=== PATIENT | male | born 1985 | race Caucasian/White ===

== ENCOUNTER → 2023-03-08 | Outpatient (CLI) | payer MEDICARE, OTHER ==
[~2023-03-08] MED LIST: ACET500 PO; ASPI500 PO; CEPH500 PO; CODACE30 PO; CYCL10 PO; FAMO20 PO; HYDACE5 PO; HYDMOR2 PO; IBUP800 PO; MOXI400; ONDA8 PO; OTC ALLERGY MED PRN; OXYACE5T PO; PROM25 PO; RXCYCL10 PO; RXHYDMOR2 PO; SERT100 PO
[2023-03-08 18:31] LABS: Adenovirus F 40/41 Not Detected (NOT DETECT); Astrovirus Not Detected (NOT DETECT); Campylobacter Sp Not Detected (NOT DETECT); Cryptosporidium Not Detected (NOT DETECT); Cyclospora Cayetanensis Not Detected (NOT DETECT); E. Coli O157 Not Detected (NOT DETECT); Entamoeba Histolytica Not Detected (NOT DETECT); Enteroaggregative E. coli-EAEC Not Detected (NOT DETECT); Enteropathogenic E. coli-EPEC Not Detected (NOT DETECT); Enterotoxigenic E. coli-ETEC Not Detected (NOT DETECT); Giardia Lamblia Not Detected (NOT DETECT); Norovirus GI/GII Not Detected (NOT DETECT); Plesiomonas Shigelloides Not Detected (NOT DETECT); Rotavirus A Not Detected (NOT DETECT); Salmonella Sp Not Detected (NOT DETECT); Sapovirus Not Detected (NOT DETECT); Shiga Toxin-prod E. coli-STEC Not Detected (NOT DETECT); Shigella/Enteroin E. coli-EIEC Not Detected (NOT DETECT); Vibrio Cholerae Not Detected (NOT DETECT); Vibrio Sp Not Detected (NOT DETECT); Yersinia Enterocolitica Not Detected (NOT DETECT)
== END | disposition home or self-care (01) ==
LOC: LAB SHORT 12:30 → LAB 12:30
PROVIDERS: Internal Medicine Gastroenterology
DX: K50.90 Crohn's disease, unspecified, without complications (principal)
CPT/HCPCS: 87507

== ENCOUNTER 2023-03-21 06:49 | Day surgery (SDC) | payer MEDICARE ==
[~2023-03-21] VITALS: Ht 182.9 cm; Wt 74.7 kg
[~2023-03-21 06:49] MED LIST changes: +AMBIEN10 MG PO; +BUPR150ER PO; +Budeprion Xl300 MG PO; +LAMO100 PO; +PRAZ2 PO
[2023-03-21 09:15] VITALS: BP 124/78
== END 2023-03-21 09:40 | disposition home or self-care (01) ==
LOC: ORSCSDS 06:49
PROVIDERS: Internal Medicine Gastroenterology
PROC: 0DBA8ZX Excision of Jejunum, Via Natural or Artificial Opening Endoscopic, Diagnostic (ICD-10-PCS; principal; 2023-03-21 08:00)
PROC: 0DBB8ZX Excision of Ileum, Via Natural or Artificial Opening Endoscopic, Diagnostic (ICD-10-PCS; principal; 2023-03-21 08:00)
PROC: 0DB78ZX Excision of Stomach, Pylorus, Via Natural or Artificial Opening Endoscopic, Diagnostic (ICD-10-PCS; principal; 2023-03-21 08:00)
PROC: 0DB98ZX Excision of Duodenum, Via Natural or Artificial Opening Endoscopic, Diagnostic (ICD-10-PCS; principal; 2023-03-21 08:00)
PROC: 0DBE8ZX Excision of Large Intestine, Via Natural or Artificial Opening Endoscopic, Diagnostic (ICD-10-PCS; principal; 2023-03-21 08:00)
DX: K50.90 Crohn's disease, unspecified, without complications (principal); R19.7 Diarrhea, unspecified; R11.0 Nausea; D12.0 Benign neoplasm of cecum; R10.9 Unspecified abdominal pain; K64.8 Other hemorrhoids
CPT/HCPCS: 88305; 88342; J2250; J2704; J7120

== ENCOUNTER 2023-10-23 04:08 | Day surgery (SDC) | payer MEDICARE ==
[2023-10-23 15:38] VITALS: BP 147/78
[2023-10-23] MEDS ORDERED: INFLECTRA100 MG IV (15:43)
[2023-10-23 16:45] VITALS: BP 113/81
== END 2023-10-23 17:52 | disposition home or self-care (01) ==
LOC: ATC 04:08
DX: K50.00 Crohn's disease of small intestine without complications (principal); K21.9 Gastro-esophageal reflux disease without esophagitis; F31.9 Bipolar disorder, unspecified; E55.9 Vitamin D deficiency, unspecified; R63.0 Anorexia; Z79.899 Other long term (current) drug therapy
CPT/HCPCS: 96375; 96413; 96415; A9270; J1720; J7050; Q5103

== ENCOUNTER 2023-11-07 04:43 | Day surgery (SDC) | payer MEDICARE ==
[~2023-11-07 04:43] MED LIST changes: +INFLECTRA100 MG IV
[2023-11-07 14:55] VITALS: BP 124/77
--- NOTE | 2023-11-07 15:00 | NUR ---
PT DECLINES PRE MEDS.
[2023-11-07 15:41] VITALS: BP 114/77
[2023-11-07 15:55] VITALS: BP 122/77
[2023-11-07 16:10] VITALS: BP 113/74
[2023-11-07 16:25] VITALS: BP 121/79
[2023-11-07 16:55] VITALS: BP 112/74
== END 2023-11-07 17:27 | disposition home or self-care (01) ==
LOC: ATC 04:43
DX: K50.00 Crohn's disease of small intestine without complications (principal); N20.0 Calculus of kidney; F31.9 Bipolar disorder, unspecified
CPT/HCPCS: 96413; 96415; J7050; Q5103

== ENCOUNTER 2023-12-05 02:41 | Day surgery (SDC) | payer OTHER ==
[2023-12-05 15:23] VITALS: BP 131/95
== END 2023-12-05 17:45 | disposition home or self-care (01) ==
LOC: ATC 02:41
DX: K50.00 Crohn's disease of small intestine without complications (principal); K21.9 Gastro-esophageal reflux disease without esophagitis; Z88.5 Allergy status to narcotic agent; Z88.8 Allergy status to other drugs, medicaments and biological substances; Z79.899 Other long term (current) drug therapy
CPT/HCPCS: 96413; 96415; J7050; Q5103

== ENCOUNTER → 2024-05-01 | Outpatient (CLI) | payer OTHER ==
[2024-05-02 13:52] LABS: Adenovirus F 40/41 Not Detected (NOT DETECT); Astrovirus Not Detected (NOT DETECT); Campylobacter Sp Not Detected (NOT DETECT); Cryptosporidium Not Detected (NOT DETECT); Cyclospora Cayetanensis Not Detected (NOT DETECT); E. Coli O157 Not Detected (NOT DETECT); Entamoeba Histolytica Not Detected (NOT DETECT); Enteroaggregative E. coli-EAEC Not Detected (NOT DETECT); Enteropathogenic E. coli-EPEC Not Detected (NOT DETECT); Enterotoxigenic E. coli-ETEC Not Detected (NOT DETECT); Giardia Lamblia Not Detected (NOT DETECT); Norovirus GI/GII Not Detected (NOT DETECT); Plesiomonas Shigelloides Not Detected (NOT DETECT); Rotavirus A Not Detected (NOT DETECT); Salmonella Sp Not Detected (NOT DETECT); Sapovirus Not Detected (NOT DETECT); Shiga Toxin-prod E. coli-STEC Not Detected (NOT DETECT); Shigella/Enteroin E. coli-EIEC Not Detected (NOT DETECT); Vibrio Cholerae Not Detected (NOT DETECT); Vibrio Sp Not Detected (NOT DETECT); Yersinia Enterocolitica Not Detected (NOT DETECT)
[2024-05-05 06:52] LABS: CALPROTECTIN,FECAL 6 ug/g (<=49)
== END ==
LOC: LAB SHORT 10:30 → LAB 10:30
PROVIDERS: Physician Assistant Medical
DX: K50.00 Crohn's disease of small intestine without complications (principal)
CPT/HCPCS: 83993; 87507

== ENCOUNTER 2024-06-04 01:57 | Day surgery (SDC) | payer OTHER ==
[~2024-06-04] VITALS: Wt 73.5 kg
[2024-06-04] MEDS ORDERED: Infliximab-DYYB 400 MG in NS 250 ML IV SCH (06:00)
[2024-06-04] MEDS ORDERED: Acetaminophen 325 MG TABLET PO SCH (07:15)
[2024-06-04] MEDS ORDERED: DiphenhydrAMINE HCL 25 MG Cap PO SCH (07:15)
[2024-06-04] MEDS ORDERED: Hydrocortisone Sod Succinate 100 MG Vial IV SCH (07:15)
[2024-06-04 15:10] VITALS: BP 121/72
== END 2024-06-04 17:35 | disposition home or self-care (01) ==
LOC: ATC 01:57
DX: K50.00 Crohn's disease of small intestine without complications (principal); Z88.5 Allergy status to narcotic agent; Z88.8 Allergy status to other drugs, medicaments and biological substances; Z79.899 Other long term (current) drug therapy
CPT/HCPCS: 96413; 96415; J7050; Q5103

== ENCOUNTER 2024-10-16 02:30 | Day surgery (SDC) | payer OTHER ==
[2024-10-15 15:00] VITALS: BP 152/78
[~2024-10-16] VITALS: Wt 73.5 kg
[~2024-10-16 02:30] MED LIST changes: +Infliximab-DYYB 400 MG in NS 250 ML IV SCH
[2024-10-16] MEDS ORDERED: Infliximab-DYYB 400 MG in NS 250 ML IV SCH (06:00)
[2024-10-16 13:58] VITALS: BP 124/80
== END 2024-10-16 16:57 | disposition home or self-care (01) ==
LOC: ATC 02:30
DX: K50.00 Crohn's disease of small intestine without complications (principal); Z90.49 Acquired absence of other specified parts of digestive tract; Z86.0101 Personal history of adenomatous and serrated colon polyps; Z79.52 Long term (current) use of systemic steroids; Z88.8 Allergy status to other drugs, medicaments and biological substances; Z88.5 Allergy status to narcotic agent
CPT/HCPCS: 96413; 96415; J7050; Q5103

== ENCOUNTER 2024-12-11 05:32 | Day surgery (SDC) | payer OTHER ==
[~2024-12-11] VITALS: Wt 72.6 kg
[~2024-12-11 05:32] MED LIST changes: -Infliximab-DYYB 400 MG in NS 250 ML IV SCH
[2024-12-11] MEDS ORDERED: Infliximab-DYYB 400 MG in NS 250 ML IV SCH (06:00)
[2024-12-11 08:00] VITALS: BP 118/67
== END 2024-12-11 11:20 | disposition home or self-care (01) ==
LOC: ATC 05:32
DX: K50.00 Crohn's disease of small intestine without complications (principal); F31.70 Bipolar disorder, currently in remission, most recent episode unspecified; Z79.899 Other long term (current) drug therapy
CPT/HCPCS: 96413; 96415; J7050; Q5103

== ENCOUNTER 2025-02-05 02:45 | Day surgery (SDC) | payer OTHER ==
[2025-02-05] MEDS ORDERED: Infliximab-DYYB 400 MG in NS 250 ML IV SCH (06:00)
[2025-02-05 08:07] VITALS: BP 114/71
== END 2025-02-05 10:52 | disposition home or self-care (01) ==
LOC: ATC 02:45
DX: K50.00 Crohn's disease of small intestine without complications (principal); F31.81 Bipolar II disorder; Z79.52 Long term (current) use of systemic steroids; Z79.899 Other long term (current) drug therapy; Z88.5 Allergy status to narcotic agent; Z88.8 Allergy status to other drugs, medicaments and biological substances; Z90.49 Acquired absence of other specified parts of digestive tract
CPT/HCPCS: 96413; 96415; J7050; Q5103

== ENCOUNTER 2025-04-02 02:02 | Day surgery (SDC) | payer OTHER ==
[~2025-04-02] VITALS: Wt 72.3 kg
[2025-04-02] MEDS ORDERED: Infliximab-DYYB 400 MG in NS 250 ML IV SCH (06:00)
[2025-04-02 09:12] VITALS: BP 107/74
== END 2025-04-02 11:50 | disposition home or self-care (01) ==
LOC: ATC 02:02
DX: K50.00 Crohn's disease of small intestine without complications (principal); K63.8219 Small intestinal bacterial overgrowth, unspecified; F31.81 Bipolar II disorder; F43.10 Post-traumatic stress disorder, unspecified; Z79.899 Other long term (current) drug therapy; Z88.8 Allergy status to other drugs, medicaments and biological substances
CPT/HCPCS: 96413; 96415; J7050; Q5103

== ENCOUNTER → 2025-05-09 | Outpatient (CLI) | payer OTHER ==
[~2025-05-09] MED LIST changes: +ZIPR20
[2025-05-13 15:27] LABS: CALPROTECTIN,FECAL 10 ug/g (<=49)
== END ==
LOC: LAB SHORT 17:15 → LAB 17:15
PROVIDERS: Physician Assistant Medical
DX: K50.00 Crohn's disease of small intestine without complications (principal)
CPT/HCPCS: 83993

== ENCOUNTER 2025-05-28 02:04 | Day surgery (SDC) | payer OTHER ==
[2025-05-28 09:00] VITALS: BP 112/66
== END 2025-05-28 11:36 | disposition home or self-care (01) ==
LOC: ATC 02:04
DX: K50.00 Crohn's disease of small intestine without complications (principal); Z79.899 Other long term (current) drug therapy; Z88.8 Allergy status to other drugs, medicaments and biological substances
CPT/HCPCS: 96413; 96415; J7050; Q5103

== ENCOUNTER 2025-07-23 00:12 | Day surgery (SDC) | payer OTHER ==
[2025-07-23 08:56] VITALS: BP 120/82
== END 2025-07-23 11:25 | disposition home or self-care (01) ==
LOC: ATC 00:12
DX: K50.00 Crohn's disease of small intestine without complications (principal); F31.81 Bipolar II disorder; F43.10 Post-traumatic stress disorder, unspecified; Z79.899 Other long term (current) drug therapy; Z88.5 Allergy status to narcotic agent; Z88.8 Allergy status to other drugs, medicaments and biological substances; Z90.49 Acquired absence of other specified parts of digestive tract
CPT/HCPCS: 96413; 96415; J7050; Q5103

== ENCOUNTER 2025-09-17 01:57 | Day surgery (SDC) | payer OTHER ==
[2025-09-17 08:59] VITALS: BP 109/64
== END 2025-09-17 11:41 | disposition home or self-care (01) ==
LOC: ATC 01:57
DX: K50.00 Crohn's disease of small intestine without complications (principal); Z86.0101 Personal history of adenomatous and serrated colon polyps; Z88.8 Allergy status to other drugs, medicaments and biological substances
CPT/HCPCS: 96413; 96415; J7050; Q5103

== ENCOUNTER 2025-11-11 07:15 | Day surgery (SDC) | payer OTHER ==
[2025-11-11 08:43] VITALS: BP 117/58
[2025-11-11 08:55] VITALS: BP 107/67
== END 2025-11-11 11:27 | disposition home or self-care (01) ==
LOC: ATC 07:15
DX: K50.00 Crohn's disease of small intestine without complications (principal); F31.70 Bipolar disorder, currently in remission, most recent episode unspecified; Z79.899 Other long term (current) drug therapy; Z88.5 Allergy status to narcotic agent; Z88.8 Allergy status to other drugs, medicaments and biological substances; Z90.49 Acquired absence of other specified parts of digestive tract
CPT/HCPCS: 96413; 96415; J7050; Q5103